=== PATIENT | male | born 1970 | race Caucasian/White ===

== ENCOUNTER 2020-02-06 08:35 | Outpatient (NON) | payer BC, SELFPAY ==
[2020-02-06 18:53] LABS: SARS-CoV-2 RNA PCR Negative
== END 2020-02-06 08:36 ==
LOC: ANHCOVIDDT 08:39
DX: Z01.818 Encounter for other preprocedural examination (principal); Z20.828 Contact with and (suspected) exposure to other viral communicable diseases
CPT/HCPCS: 87635; C9803; U0003

== ENCOUNTER → 2021-03-14 14:14 | Outpatient (CLI) | payer BC, SELFPAY ==
--- NOTE | ~2021-03-14 | MR_ITS ---
EXAMINATION: MR lumbar spine wo con DATE: 03/14/2021 14:50 INDICATION: Lumbar radiculopathy. Low back pain. TECHNIQUE: Magnetic resonance imaging (MRI) of the lumbar spine was performed without intravenous con trast. Sequences included sagittal T2-weighted FSE, sagittal T2-weighted FS FSE, sagittal T1-weighted FSE, and axial T2-weighted FSE. COMPARISON: Lumbar spine radiographs 07/06/2018 FINDINGS: There is 3 mm anterolisthesis of L5 on S1. There is mild chronic anterior wedging of T12 an d L1 vertebral bodies. There is a hemangioma in S2 segment. There is mildly decreased disc height at L5-S1. The distal spinal cord signal intensity is normal. The conus medullaris is at L1-L2. The follo wing disc levels are specifically discussed: L1-L2: There is a central protrusion. There is mild bilateral facet joint osteoarthritis. There is no neural foraminal stenosis. There is no central canal stenosis. L2-L3: The disc is mildly bulging. There is mild bilateral facet joint osteoarthritis. There is mild left neural foraminal stenosis. There is mild central canal stenosis. L3-L4: The disc is bulging. There is mild bilateral facet joint osteoarthritis. There is mild bilater al neural foraminal stenosis. There is mild central canal stenosis. L4-L5: The disc is mildly bulging and has an annular fissure. There is mild bilateral facet joint ost eoarthritis. There is mild right neural foraminal stenosis. There is no central canal stenosis. L5-S1: The disc is bulging and has an annular fissure. There is mild bilateral facet joint osteoarthr itis. There is mild bilateral neural foraminal stenosis. There is mild central canal stenosis. IMPRESSION: 1. Mild lumbar spondylosis. Reviewed, dictated and finalized at location B. GUIDE IMPRESSION: 1. Mild lumbar spondylosis.
== END ==
PROVIDERS: PCP Family Medicine; Visit Provider Nurse Practitioner Family
DX: M47.26 Other spondylosis with radiculopathy, lumbar region (principal)
CPT/HCPCS: 72148

== ENCOUNTER → 2021-05-14 16:16 | Outpatient (CLI) | payer BC, SELFPAY ==
--- NOTE | ~2021-05-14 | XR_ITS ---
XR hip LT min 2V DATE: 05/14/2021 16:29 INDICATION: Left hip pain TECHNIQUE: AP, lateral views COMPARISON: None FINDINGS: There is irregular flattening deformity and some prominent sclerosis and mild lucency of th e left femoral head consistent with avascular necrosis. There is severe left hip joint space narrowin g as well as prominent left hip joint spurring. No fracture or dislocation. The pubic symphysis and left sacroiliac joint are intact. 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 IMPRESSION: Avascular necrosis left femoral head and severe left hip osteoarthr itis
== END ==
PROVIDERS: PCP Family Medicine; Visit Provider Nurse Practitioner Family
DX: M16.12 Unilateral primary osteoarthritis, left hip (principal); M87.852 Other osteonecrosis, left femur
CPT/HCPCS: 73502

== ENCOUNTER 2024-09-22 14:55 | Outpatient (CLI) | payer BC, SELFPAY ==
--- OUTSIDE RECORDS SUMMARY | 2024-09-22 14:58 | XMS_ITS | Clinical Summary ---
Author Organization [facility] Address [address] [place] [address] Phone Care Team Providers Care Jewelry Store Manager Name Role Phone Jj Luu MD Primary Care Provider Allergies No known active allergies Medications lisinopril-hydro CHLOROthiazide (PRINZIDE, ZESTORETIC) 10-12.5 MG Tablet Take 1 Tablet by mouth daily. Active atorvastatin (LIPITOR) 10 MG Tablet Take 10 mg by mouth daily. 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 Gender Identity Not on file Sexual Orientation Not on file Last Filed Vital Signs Vital Sign Reading Time Taken Comments Blood Pressure 123/91 11/16/2020 8:19 AM CDT Pulse 65 11/16/2020 8:19 AM CDT Temperature 36 C (96.8 F) 11/16/2020 8:19 AM CDT Respiratory Rate 16 11/16/2020 8:19 AM CDT Oxygen Saturation 95% 11/16/2020 8:19 AM CDT Inhaled Oxygen Concentration - - Weight 99.8 kg (220 lb) 10/19/2020 1:00 PM CDT Height 177.8 cm (5' 10) 10/19/2020 1:00 PM CDT Body Mass Index 31.57 10/19/2020 1:00 PM CDT Plan of Treatment Health Maintenance Due Date Last Done Comments Hepatitis C Virus (HCV) Screening 1968 Hepatitis B Immunization (1 of 3 - 19+ 3-dose series) 02/18/1987 Cologuard 02/18/2013 Immunochemical Fecal Occult Blood 02/18/2013 Pneumococcal Immunization (5 0+ years) (1 of 1 - PCV) 02/18/2018 Zoster Immunization (1 of 2) 02/18/2018 Colonoscopy 11/16/2021 11/16/2020, 02/10/2019, 10/28/2018 Colorectal Cancer Screening 11/16/2021 SARS-COV-2 Immunization (2 - season) 2023 05/08/2020 Influenza Immunization (#1) 2024 Respiratory Syncytial Virus (RSV) Immunization (Adult) (1 - 1-dose 75+ series) 02/18/2043 DTaP/Tdap/Td Immunization Discontinued 02/06/2015 TdaP Immunization Completed 02/06/2015 Human Papillomavirus (HPV) Immunization Aged Out No longer eligible based on patient's age to complete this topic Meningococcal Immunization (ACWY) Aged Out No longer eligible based on patient's age to complete this topic Rotavirus Immunization Aged Out No lo nger eligible based on patient's age to complete this topic Procedures Procedure Name Priority Date/Time Associated Diagnosis Comments COLONOSCOPY Routine 02/10/2019 from Last 3 Months or Most Recently Relevant to Health Maintenance Results * COLONOSCOPY (02/10/2019) us Eduin Beck DO PROCEDURE/MINOR SURGICAL ORDERA BLES Final Result from Last 3 Months or Most Recently Relevant to Health Maintenance [place] [address] [facility] Care Teams Jewelry Store Manager Relationship Specialty Start Date End Date Jj Luu MD PCP - General Family Medicine 08/10/18
--- OUTSIDE RECORDS SUMMARY | 2024-09-22 14:58 | XMS_ITS | Clinical Summary ---
Author Organization [facility] Address [address] [place] [id number] Care Team Providers Care Long Line Teamster Name Role Phone Jj Luu MD Primary Care Provider Gerald Gomez MD Unavailable Allergies No known active allergies Medications lisinopril-hydroC HLOROthiazide (ZESTORETIC) 10-12.5 mg per tabletIndications :hypertension Take 1 tablet by mouth every morning 022 Active cholecalciferol, vitamin D3, (VITAMIN D3 ORAL)Indications: supplement Take 1 tablet by mouth every morning Active acetaminophen (TYLENOL) 500 mg tablet Take 1 tablet (500 mg total) by mouth every 8 (eight) hours as needed for pain 90 tablet 025 Active aspirin 81 mg chewable tablet Take 1 tablet (81 mg total) by mouth 2 (two) times a day 60 tablet 025 Active atorvastatin (LIPITOR) 80 mg tablet Take 1 tablet (80 mg total) by mouth nightly at bedtime 025 Active atorvastatin (LIPITOR) 40 mg tabletIndications :hyperlipidemia Take 1 tablet (40 mg total) by mouth every morning 2024 Discontinued testosterone cypionate (DEPO-TESTOTERONE ) 200 mg/mL injectionIndicati ons:supplement Inject 1 mL (200 mg total) into the muscle as instructed every 28 (twenty-eight ) days 025 2024 Discontinued(P atient Reported) oxyCODONE (ROXICODONE) 5 mg immediate release tabletIndications :Pain Take 1 tablet (5 mg total) by mouth every 4 (four) hours as needed for pain (Breakthrough Pain) 30 tablet 025 2024 Discontinued(P atient Reported) pregabalin (LYRICA) 75 mg capsuleIndication s:Postoperative Acute Pain Take 1 capsule (75 mg total) by mouth 2 (two) times a day for 14 days 28 capsule 025 2024 Discontinued(P atient Reported) traMADoL (ULTRAM) 50 mg tablet Take 1 tablet (50 mg total) by mouth every 8 (eight) hours as needed for pain 42 tablet 025 2024 Discontinued(P atient Reported) ondansetron ODT (ZOFRAN-ODT) 4 mg disintegrating tablet Take 1 tablet (4 mg total) by mouth every 8 (eight) hours as needed for nausea or vomiting 20 tablet 025 2024 Discontinued(P atient Reported) pantoprazole DR (PROTONIX) 40 mg EC tablet Take 1 tablet (40 mg total) by mouth daily 30 tablet 025 2024 Discontinued(P atient Reported) Active Problems Problem Noted Date Diagnosed Date Primary osteoarthritis of right hip 03/25/2024 Hypertension 07/24/2021 Hyperlipemia 07/24/2021 Class 1 obesity in adult 07/24/2021 At risk for obstructive sleep apnea 07/24/2021 Primary osteoarthritis of left hip 07/10/2021 Overview (07/10/2021): Added automatically from request for surgery [id number] Encounters Date Type Department Care Team Description 09/16/2024 2:45 PM CDT Office Visit [facility] Orthopaedic Surgery [address] [place] [address] Medical Office Building [address] [place] [address] Gerald Gomez MD Orthopedic aftercare (Primary Dx) 09/16/2024 1:52 PM CDT - 09/16/2024 11:59 PM CDT Hospital Encounter [id number] [address] [place] [address] [address] [place] [address] Orthopedic aftercare Discharge Disposition: Discharge to home or self care 06/24/2024 2:45 PM CDT Office Visit [facility] Orthopa[facility] Surgery [address] [facility] Medical Office [address] [place] [address] Gerald Gomez MD Orthopedic aftercare (Primary Dx) 06/24/2024 1:49 PM CDT - 06/24/2024 11:59 PM CDT Hospital Encounter [facility] [address] [facility] [address] [place] [address] Orthopedic aftercare Discharge Disposition: Discharge to home or self care from Last 3 Months Immunizations Immunization Administration Dates Next Due Tdap 02/06/2015 Surgical History Surgery Date Site/Laterality Comments APPENDECTOMY had appendix removed as a baby OTHER SURGICAL HISTORY ORIF R arm WISDOM TOOTH EXTRACTION HIP SURGERY 03/02/2021 - 03/01/2022 Left Medical History Medical History Date Comments Hypertension 5 years ago Kidney stone had once in 1997 Family History Medical History Relation Name Comments Heart attack Father Justice Coleman Hypertension Father Justice Coleman Anesthesia problems Neg Hx Relation Name Status Comments Father Justice Coleman Social History Tobacco Use Types Packs/Day Years Used Date Smoking Tobacco: Never Smokeless Tobacco: Never AUDIT-C Answer Date Recorded Q1: How often do you have a drink containing alcohol? 4 or more times a week 05/24/2024 Q2: How many drinks containi ng alcohol do you have on a typical day when you are drinking? 3 or 4 Q3: How often do you have si x or more drinks on one occasion? Less than monthly 05/24/2024 Personal Safety Answer Date Recorded Have you ever been in or are you currently in a harmful physical or emotional relationship or is someone making you feel afraid or unsafe? 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 Gender Identity Not on file Sexual Orientation Not on file Obstetrics History Last Filed Vital Signs Vital Sign Reading Time Taken Comments Blood Pressure 140/78 05/24/2024 12:20 PM CDT Pulse 100 05/24/2024 12:20 PM CDT Temperature 36 C (96.8 F) 05/24/2024 9:20 AM CDT Respiratory Rate 17 05/24/2024 11:30 AM CDT Oxygen Saturation 94% 05/24/2024 12:20 PM CDT Inhaled Oxygen Concentration - - Weight 99.8 kg (220 lb) 05/24/2024 7:09 AM CDT Height 177.8 cm (5' 10) 05/10/2024 2:40 PM CDT Body Mass Index 31.57 05/10/2024 2:40 PM CDT Plan of Treatment Health Maintenance Due Date Last Done Comments Colon Cancer Screening-Colonoscopy 1970 Depression Screening 1970 Hepatitis C Screening 1970 Prostate Cancer Screening-PSA 1968 Hepatitis B Screening 02/18/1986 Regular Well Visit/Exam 18-64 02/18/1986 Zoster Vaccine (1 of 2) 02/18/2018 Covid-19 Vaccine (2 - 2023-2 5 season) 2023 05/08/2020 Influenza Vaccine (#1) 2024 DTaP/Tdap/Td Vaccine (2 - Td or Tdap) 02/06/2025 02/06/2015 Pneumococcal vaccine <65 Aged Out No longer eligible based on patient's age to complete this topic Medical Devices Implanted Type Area Hand Coke Drawer Device Identifier Shelf Expiration Date Model / Serial / Lot [employer] 709-04-56f Shell Acetabular Trident Ii Tritanium F Od56mm Hip 13 Hole Sterile - Sna - [id number] Implanted:Qty: 1 on 08/01/2021 by Gerald Gomez MD at [facility] Other - see comments Left: Hip [employer] [id number] 05/19/2026 709-04-5 6F / NA / [id number] Description:Implant pause pe rformed prior to implant being opened to sterile field. Tjrident X3 0 Degree Polyethyleve Inser Implanted:Qty: 1 on 08/01/2021 by Gerald Gomez MD at [facility] Other - see comments Left: Hip [employer] [id number] 12/11/2025 723-00-4 0F / NA / [id number] Description:Implant pause pe rformed prior to implant being opened to sterile field. [employer] V40 Lfit 40mm Primary Anatomic Hip +8mm Offset Taper Head Femoral 6260-9-340 - Sna - [id number] Implanted:Qty: 1 on 08/01/2021 by Gerald Gomez MD at [facility] Other - see comments Left: Hip [employer] [id number] 02/05/2025 6260-9-3 40 / NA / [id number] Description:Implant pause pe rformed prior to implant being opened to sterile field. [employer] 2507-9935 Stem Insignia Hip Size 4 High Offset - Sna - [id number] Implanted:Qty: 1 on 08/01/2021 by Gerald Gomez MD at [facility] Other - see comments Left: Hip [employer] [id number] 04/08/2026 7000-660 4 / NA / [id number] Description:Implant pause pe rformed prior to implant being opened to sterile field. [employer] 9794-1306 Screw Bone Trident Ii L30mm Od6.5mm Low Profile Hexagonal Sterile - Sna - [id number] Implanted:Qty: 1 on 08/01/2021 by Gerald Gomez MD at [facility] Screw Left: Hip [employer] [id number] 06/24/2026 7030-653 0 / NA / [id number] Description:Implant pause pe rformed prior to implant being opened to sterile field. [employer] 4966-0894 Screw Bone Trident Ii L25mm Od6.5mm Low Profile Hexagonal Sterile - Sna - [id number] Implanted:Qty: 1 on 08/01/2021 by Gerald Gomez MD at [facility] Screw Left: Hip [employer] [id number] 05/24/2026 7030-652 5 / NA / [id number] Description:Implant pause pe rformed prior to implant being opened to sterile field. [employer] Screw Bone Trident Ii L30mm Od6.5mm Low Profile Hexagonal Sterile 6089-1894 - [id number] Implanted:Qty: 1 on 05/24/2024 at [facility] Right: Hip [employer] 08/23/2028 7030-653 0 / / [facility] [employer] Stem Femoral Hip Collared [employer]ignia 38.7w826ns High Offset Size 5 7641-4756 - [id number] Implanted:Qty: 1 on 05/24/2024 at [facility] Right: Hip [employer] 03/30/2029 7000-660 5 / / [id number] [employer] V40 Hip -2.5mm Offset [place] Taper Sleeve Adapter Titanium 6519-T-025 - [id number] Implanted:Qty: 1 on 05/24/2024 at [facility] Right: Hip [employer] 04/11/2029 6519-T-0 25 / / [id number] [employer] 44mm Tapered Hip [place] Head Femoral Biolox Nonsterile 6519-1-044 - [id number] Implanted:Qty: 1 on 05/24/2024 at [facility] Right: Hip [employer] 03/10/2029 6519-1-0 44 / / [id number] [employer] Liner Acetabular Hip Trident X3 44mm Polyethylene 0 Degree Size F 723-00-44f - [id number] Implanted:Qty: 1 on 05/24/2024 at [facility] Right: Hip [employer] 03/24/2029 723-00-4 4F / / [id number] [employer] Shell Acetabular Trident Ii Tritanium F Od56mm Hip 5 Screw Hole Cluster Sterile 702-04-56f - [id number] Implanted:Qty: 1 on 05/24/2024 at [facility] Right: Hip [employer] 01/31/2029 702-04-5 6F / / [id number] A Explanted Type Area Hand Coke Drawer Device Identifier Shelf Expiration Date Model / Serial / Lot [employer] Component Navigation Orthopedic Knee Instrument 132 Degree [facility] [id number] - [id number] Explanted:Qty: 1 on 05/24/2024 at [facility] Right: Hip [employer] 10/22/2028 [id number] / / [id number] Procedures Procedure Name Priority Date/Time Associated Diagnosis Comments XR HIP RIGHT W PELVIS 2 OR 3 VIEWS Schedule Routine, Read Routine (OP Routine) 09/16/2024 2:04 PM CDT Orthopedic aftercare XR HIP RIGHT W PELVIS 2 OR 3 VIEWS Schedule Routine, Read Routine (OP Routine) 06/24/2024 2:09 PM CDT Orthopedic aftercare from Last 3 Months Results * XR Hip Right 2 or 3 Views W Pelvis (09/16/2024 2:04 PM CDT) Anatomical Region Laterality Modality Lower Extremities, Hip, Pelvis Right C omputed Radiography 09/16/2024 4:23 PM CDT Impressions 09/16/2024 10:49 PM CDT Unchanged right total hip arthroplasty in near-anatomic alignment. Dictated by: Tee Anderson MD The radiology attending physician has personally reviewed this study, and had reviewed and/or edited this written report and agrees with it. Electronically signed by: Anjel Montoya MD [facility] 09/16/2024 10:49 PM CDT EXAMINATION: XR HIP RIGHT 2 OR 3 VIEWS W PELVIS HISTORY: Hip arthroplasties. COMPARISON: Comparison made to radiographs 06/24/2024 FINDINGS: 2 total radiographs of the lower pelvis and the right hip are submitted for interpretation. Unchanged right total hip arthroplasty in near-anatomic alignment. Hardware is intact without periprosthetic osteolysis or fracture. No acute fracture of the lower pelvis. There is a left hip arthroplasty. Procedure Note Usha Montoya MD - 09/16/2024 EXAMINATION: XR HIP RIGHT 2 OR 3 VIEWS W PELVIS HISTORY: Hip arthroplasties. COMPARISON: Comparison made to radiographs 06/24/2024 FINDINGS: 2 total radiographs of the lower pelvis and the right hip are submitted for interpretation. Unchanged right total hip arthroplasty in near-anatomic alignment. Hardware is intact without periprosthetic osteolysis or fracture. No acute fracture of the lower pelvis. There is a left hip arthroplasty. IMPRESSION: Unchanged right total hip arthroplasty in near-anatomic alignment. Dictated by: Tee Anderson MD The radiology attending physician has personally reviewed this study, and had reviewed and/or edited this written report and agrees with it. Electronically signed by: Anjel Montoya MD Gerald Gomez MD IMG XR PROCEDURES Final Result * XR Hip Right 2 or 3 Views W Pelvis (06/24/2024 2:09 PM CDT) Anatomical Region Laterality Modality Lower Extremities, Hip, Pelvis Right C omputed Radiography 06/24/2024 3:04 PM CDT Impressions 06/24/2024 4:06 PM CDT Unchanged right total hip arthroplasty in near anatomic alignment. Dictated by: Jimenez Dupont MD The radiology attending physician has personally reviewed this study, and had reviewed and/or edited this written report and agrees with it. Electronically signed by: Tobi Moore D.O. Narrative 06/24/2024 4:06 PM CDT EXAMINATION: XR HIP RIGHT 2 OR 3 VIEWS W PELVIS HISTORY: Right hip arthroplasty FINDINGS: 2 views of the right hip are compared to 05/24/2024. There is an unchanged right total hip arthroplasty in near anatomic alignment. No periprosthetic fracture or lucency. Interval resolution of previously seen postsurgical soft tissue gas. A left total hip arthroplasty is in expected position. Procedure Note Tobi Moore, - 06/24/2024 EXAMINATION: XR HIP RIGHT 2 OR 3 VIEWS W PELVIS HISTORY: Right hip arthroplasty FINDINGS: 2 views of the right hip are compared to 05/24/2024. There is an unchanged right total hip arthroplasty in near anatomic alignment. No periprosthetic fracture or lucency. Interval resolution of previously seen postsurgical soft tissue gas. A left total hip arthroplasty is in expected position. IMPRESSION: Unchanged right total hip arthroplasty in near anatomic alignment. Dictated by: Jimenez Dupont MD The radiology attending physician has personally reviewed this study, and had reviewed and/or edited this written report and agrees with it. Electronically signed by: Tobi Moore D.O. Gerald Gomez MD IMG XR PROCEDURES Final Result from Last [address] [place] [address] [place] For more information, please contact: [phone] * Full Code (Latest Code Status on File) Date Activated Date Inactivated Comments 08/01/2021 11:12 AM 08/02/2021 3:04 PM Care Teams Long Line Teamster Relationship Specialty Start Date End Date Jj Luu MD PCP - General Family Practice 07/24/21 Gerald Gomez MD [address] [facility] [address] [place] [address] Consulting Physician Orthopedic Surgery 05/24/24
--- OUTSIDE RECORDS SUMMARY | 2024-09-22 14:58 | XMS_ITS | Clinical Summary ---
Author Organization [facility] Address [address] [place] [phone] Care Team Providers Care Whipper Beater Name Role Phone Unavailable Primary Care Provider Unavailabl e Encounters Date Type Department Care Team Description 08/23/2024 External Device Data ST[facility] ABSTRACTION Provider, Abstract 07/21/2024 External Device Data [facility] ABSTRACTION Provider, Abstract 07/20/2024 External Device Data [facility] ABSTRACTION Provider, Abstract from Last 3 Months Social History Tobacco Use Types Packs/Day Years Used Date Smoking Tobacco: Never Assessed Sex and Gender Information Value Date Recorded Sex Assigned at Not on file 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
--- OUTSIDE RECORDS SUMMARY | 2024-09-22 14:58 | XMS_ITS | Referral Summary ---
Author Organization [facility] Address [address] [place] [address] Care Team Providers Care Arts Education Teacher Name Role Phone Jj Luu MD Primary Care Provider Gerald Gomez MD Unavailable Encounters Date Type Department Care Team Description 09/16/2024 1:52 PM CDT - 09/16/2024 11:59 PM CDT Hospital Encounter [facility] [address] [place] [address] [address] [place] [address] Orthopedic aftercare Discharge Disposition: Discharge to home or self care 09/16/2024 2:45 PM CDT Office Visit [facility] Orthopaedic Surgery [address] [place] [address] [address] [place] [phone] Gerald Gomez MD Orthopedic aftercare (Primary Dx) 06/24/2024 1:49 PM CDT - 06/24/2024 11:59 PM CDT Hospital Encounter [facility] [address] [place] [address] [address] [place] [address] Orthopedic aftercare Discharge Disposition: Discharge to home or self care 06/24/2024 2:45 PM CDT Office Visit [facility] Orthopaedic Surgery [address] [place] [address] 4 [address] [place] [address] Gerald Gomez MD Orthopedic aftercare (Primary Dx) from Last 3 Months Allergies No known active allergies Medications lisinopril-hydroC HLOROthiazide (ZESTORETIC) 10-12.5 mg per tabletIndications :hypertension Take 1 tablet by mouth every morning Active cholecalciferol, vitamin D3, (VITAMIN D3 ORAL)Indications: supplement Take 1 tablet by mouth every morning Active acetaminophen (TYLENOL) 500 mg tablet Take 1 tablet (500 mg total) by mouth every 8 (eight) hours as needed for pain 90 tablet Active aspirin 81 mg chewable tablet Take 1 tablet (81 mg total) by mouth 2 (two) times a day 60 tablet Active atorvastatin (LIPITOR) 80 mg tablet Take 1 tablet (80 mg total) by mouth nightly at bedtime Active atorvastatin (LIPITOR) 40 mg tabletIndications :hyperlipidemia Take 1 tablet (40 mg total) by mouth every morning 2024 Discontinued testosterone cypionate (DEPO-TESTOTERONE ) 200 mg/mL injectionIndicati ons:supplement Inject 1 mL (200 mg total) into the muscle as instructed every 28 (twenty-eight ) days 2024 Discontinued(P atient Reported) oxyCODONE (ROXICODONE) 5 mg immediate release tabletIndications :Pain Take 1 tablet (5 mg total) by mouth every 4 (four) hours as needed for pain (Breakthrough Pain) 30 tablet 2024 Discontinued(P atient Reported) pregabalin (LYRICA) 75 mg capsuleIndication s:Postoperative Acute Pain Take 1 capsule (75 mg total) by mouth 2 (two) times a day for 14 days 28 capsule 2024 Discontinued(P atient Reported) traMADoL (ULTRAM) 50 mg tablet Take 1 tablet (50 mg total) by mouth every 8 (eight) hours as needed for pain 42 tablet 2024 Discontinued(P atient Reported) ondansetron ODT (ZOFRAN-ODT) 4 mg disintegrating tablet Take 1 tablet (4 mg total) by mouth every 8 (eight) hours as needed for nausea or vomiting 20 tablet 2024 Discontinued(P atient Reported) pantoprazole DR (PROTONIX) 40 mg EC tablet Take 1 tablet (40 mg total) by mouth daily 30 tablet 18/ 2025 Discontinued(P atient Reported) Active Problems Problem Noted Date Diagnosed Date Primary osteoarthritis of right hip 03/25/2024 Hypertension 07/24/2021 Hyperlipemia 07/24/2021 Class 1 obesity in adult 07/24/2021 At risk for obstructive sleep apnea 07/24/2021 Primary osteoarthritis of left hip 07/10/2021 Overview (07/10/2021): Added automatically from request for surgery [id number] Immunizations Immunization Administration Dates Next Due Tdap 02/06/2015 Social History Tobacco Use Types Packs/Day Years [...] on file 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 Gender Identity Not on file Sexual Orientation [...] 05/10/2024 2:40 PM CDT Plan of Treatment Not on file Medical Devices Implanted Type Area Wood Web Weaving Machine Operator Device Identifier Shelf Expiration Date Model / Serial / Lot [employer] 709-04-56f Shell Acetabular Trident Ii Tritanium F Od56mm Hip 13 Hole Sterile - Sna - [id number] Implanted:Qty: 1 on 08/01/2021 by Gerald Gomez MD at [facility] Other - see comments Left: Hip [facility] [id number] 05/19/2026 709-04-5 6F / NA / [id number] A Description:Implant pause pe rformed prior to implant being opened to sterile field. Tjrident X3 0 Degree Polyethyleve Inser Implanted:Qty: 1 on 08/01/2021 by Gerald Gomez MD at [facility] Other - see comments Left: Hip [employer] [id number] 12/11/2025 723-00-4 0F / NA / [id number] Description:Implant pause pe rformed prior to implant being opened to sterile field. [employer] V40 Lfit 40mm Primary Anatomic Hip +8mm Offset Taper Head Femoral 6260-9-340 - Sna - [id number] Implanted:Qty: 1 on 08/01/2021 by Gerald Gomez MD at [facility] Other - see comments Left: Hip [employer] [id number] 02/05/2025 6260-9-3 40 / NA / [id number] Description:Implant pause pe rformed prior to implant being opened to sterile field. [employer] 3419-8688 Stem Insignia Hip Size 4 High Offset - Sna - [id number] Implanted:Qty: 1 on 08/01/2021 by Gerald Gomez MD at [facility] Other - see comments Left: Hip [facility] [id number] 04/08/2026 7000-660 4 / NA / [id number] Description:Implant pause pe rformed prior to implant being opened to sterile field. [facility] 3108-9900 Screw Bone Trident Ii L30mm Od6.5mm Low Profile Hexagonal Sterile - Sna - [id number] Implanted:Qty: 1 on 08/01/2021 by Gerald Gomez MD at [facility] Screw Left: Hip [facility] [id number] 06/24/2026 7030-653 0 / NA / [id number] Description:Implant pause pe rformed prior to implant being opened to sterile field. [facility] 7919-6073 Screw Bone Trident Ii L25mm Od6.5mm Low Profile Hexagonal Sterile - Sna - [id number] Implanted:Qty: 1 on 08/01/2021 by Gerald Gomez MD at [facility] Screw Left: Hip [employer] [id number] 05/24/2026 7030-652 5 / NA / [id number] Description:Implant pause pe rformed prior to implant being opened to sterile field. [facility] [facility] Screw Bone Trident Ii L30mm Od6.5mm Low Profile Hexagonal Sterile 2028-1441 - [id number] Implanted:Qty: 1 on 05/24/2024 at [facility] Right: Hip [facility] 08/23/2028 7030-653 0 / / [facility] [employer] Stem Femoral Hip Collared Insignia 38.9t446bc High Offset Size 5 9666-6394 - [id number] Implanted:Qty: 1 on 05/24/2024 at [facility] Right: Hip [facility] 03/30/2029 7000-660 5 / / [id number] [facility] [facility] V40 Hip -2.5mm Offset Talala Taper Sleeve Adapter Titanium 6519-T-025 - [id number] Implanted:Qty: 1 on 05/24/2024 at [facility] Right: Hip [facility] 04/11/2029 6519-T-0 25 / / [id number] [facility] 44mm Tapered Hip [place] Head Femoral Biolox Nonsterile 6519-1-044 - [id number] Implanted:Qty: 1 on 05/24/2024 at [facility] Right: Hip [employer] 03/10/2029 6519-1-0 44 / / [id number] [employer] Liner Acetabular Hip Trident X3 44mm Polyethylene 0 Degree Size F 723-00-44f - [id number] Implanted:Qty: 1 on 05/24/2024 at [facility] Right: Hip [employer] [facility] 03/24/2029 723-00-4 4F / / [id number] [facility] Shell Acetabular Trident Ii Tritanium F Od56mm Hip 5 Screw Hole Cluster Sterile 702-04-56f - [id number] Implanted:Qty: 1 on 05/24/2024 at [facility] Right: Hip [facility] 01/31/2029 702-04-5 6F / / [id number] A Explanted Type Area Wood Web Weaving Machine Operator Device Identifier Shelf Expiration Date Model / Serial / Lot [employer] Component Navigation Orthopedic Knee Instrument 132 Degree [facility] [id number] - [id number] Explanted:Qty: 1 on 05/24/2024 at [facility] Right: Hip [facility] 10/22/2028 [id number] / / [id number] Procedures Procedure Name Priority Date/Time Associated [...] it. Electronically signed by: Anjel Montoya MD Narrative 09/16/2024 10:49 PM CDT EXAMINATION: XR HIP [...] and agrees with it. Electronically signed by: Malik Yarbrough 06/24/2024 4:06 PM CDT EXAMINATION: XR HIP [...] in expected position. Procedure Note Tobi Moore, DO - 06/24/2024 EXAMINATION: XR HIP RIGHT 2 [...] Final Result from Last 3 Months [place] [employer] [place] [employer] [place] [employer] [place] [employer] [place] Direct[place] For more information, please contact: [phone] * Full Code (Latest Code Status on File) Date Activated Date Inactivated Comments 08/01/2021 11:12 AM 08/02/2021 3:04 PM Care Teams Arts Education Teacher Relationship Specialty Start Date End Date Jj Luu MD PCP - General Family Practice 07/24/21 Gerald Gomez MD [address] [facility] [address]6B[address] [address] Consulting Physician Orthopedic Surgery 05/24/24
--- NOTE | 2024-09-22 15:13 | ECG_ITS ---
Test Date: 2024-09-22 15:20:23 Measurements Intervals [place] Rate: 61 P: 38 NH: 209 QRS: 27 QRSD: 101 T: -22 QT: 407 QTc: 413 Interpretive Statements SINUS RHYTHM NONSPECIFIC T-WAVE ABNORMALITY No previous ECG available for comparison Electronically Signed On 09-23-2024 16:02:44 CDT by Hero Carlin M.D.
== END 2024-09-22 14:56 | disposition home or self-care (01) ==
PROVIDERS: PCP Family Medicine; Visit Provider Anesthesiology
DX: Z01.818 Encounter for other preprocedural examination (principal); R94.31 Abnormal electrocardiogram [ECG] [EKG]; K40.90 Unilateral inguinal hernia, without obstruction or gangrene, not specified as recurrent; I10 Essential (primary) hypertension; E78.5 Hyperlipidemia, unspecified
CPT/HCPCS: 36415; 86850; 86900; 86901; 93005

== ENCOUNTER 2024-09-27 02:07 | Day surgery (SDC) | payer BC, SELFPAY ==
[2024-09-21 14:55] VITALS: BMI 31.6
--- NOTE | 2024-09-21 15:05 | PC.NURSE ---
Report to the Outpatient Waiting Room, entrance under the green pavilion located off [facility], at time _1100_ on date _[phone]_. Planned Procedure Time: _1pm_.? Time changes happen often and if your time is changed the preop area will call you the afternoon before. - You and your visitor will be asked to self-screen and do not enter if you have any COVID symptoms. Please call surgeon if you need to reschedule. - A mask is optional within the hospital at this time. Patients may have clear liquids (water, carbonated beverages, clear teas, apple juice) until 3 hours prior to surgery with a maximum of 20 ounces. - No food from midnight until time of surgery and no smoking, or chewing tobacco (or any form of nicotine). No chewing gum, candy or mints. Take only the following medications with a SIP of water on the morning of surgery: ____None DO NOT STOP ANY OF YOUR OTHER PRESCRIPTION MEDICATIONS PRIOR TO SURGERY EXCEPT THE FOLLOWING Hold all vitamins and supplements for 3 days per anesthesiologist. Medications to discontinue per physician Date to take last kwaz___[phone]____ Please no make-up, nail tajik, hairspray, perfume, deodorant, or body powder the day of surgery.? No jewelry (including any body piercings) or valuables the day of surgery, leave them at home.? Please take a shower or bath the night before, or the morning of, surgery with an antibacterial soap.? Wear comfortable, loose fitting clothing. - Jewelry must be removed prior to entering the operating room.? Rings and piercings that are not removed may be cut off. - The hospital will not accept responsibility for valuables.? - Please leave all valuables, including medications, at home the day of surgery. If you are going home after surgery, a licensed route delivery driver must drive you home.? - NO public transportation without another adult if you receive anesthesia. - We recommend that an adult stay with you for 24 hours following discharge. - We also recommend that you do not drive, make important decision, drink alcoholic beverages, or take any drugs that were not prescribed by your health care provider for at least 24 hours after your discharge time. Follow any additional instructions given to you from your surgeon. Telephone instructions given to __Mike___and asked if any additional questions and then verbalized understanding. Patient advised to call surgeon office or pre surgery nurse liaison [phone] if any additional questions.
[2024-09-27] VITALS (10 sets, daily range): BP systolic 118–130; BP diastolic 70–82; PULSE 63–77; RESP 14–18; TEMP 36.7–37.3; O2SAT 93–98
--- OUTSIDE RECORDS SUMMARY | 2024-09-27 02:09 | XMS_ITS | Clinical Summary ---
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
--- OUTSIDE RECORDS SUMMARY | 2024-09-27 02:09 | XMS_ITS | Referral Summary ---
Author Organization [facility] Address [address] [place] [address] Care Team Providers Care Press Operator Meat Name Role Phone Jj Luu MD Primary Care Provider Gerald Gomez MD Unavailable Encounters Date Type Department Care Team Description 09/16/2024 1:52 PM CDT - 09/16/2024 11:59 PM CDT Hospital Encounter [facility] Radiology [address] [place] [address] [address] [place] [phone] Orthopedic aftercare Discharge Disposition: Discharge to home or self care 09/16/2024 2:45 PM CDT Office Visit [facility] Orthopaedic Surgery [address] [place] [address] Medical Office Building [address] [place] [address] Gerald Gomez MD Orthopedic aftercare [...] mg total) by mouth daily 30 tablet 2024 Discontinued(P atient Reported) Active Problems Problem Noted Date Diagnosed Date Primary osteoarthritis of right hip 03/25/2024 Hypertension 07/24/2021 Hyperlipemia 07/24/2021 Class 1 obesity in adult 07/24/2021 At risk for obstructive sleep apnea 07/24/2021 Primary osteoarthritis of left hip 07/10/2021 Overview (07/10/2021): Added automatically from request for surgery [id number] Immunizations Immunization Administration Dates Next Due Tdap [...] on file 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 Tjrident X3 0 Degree Polyethyleve Inser Implanted:Qty: 1 on 08/01/2021 by Gerald Gomez MD at [facility] Other - see comments Left: Hip [facility] [id number] 12/11/2025 723-00-4 0F / NA / [id number] Description:Implant pause pe rformed prior to implant being opened to sterile field. [facility] V40 Lfit 40mm Primary Anatomic Hip +8mm Offset Taper Head Femoral 6260-9-340 - Sna - [id number] Implanted:Qty: 1 on 08/01/2021 by Gerald Gomez MD at [facility] Other - see comments Left: Hip [employer] [id number] 02/05/2025 6260-9-3 40 / NA / [id number] Description:Implant pause pe rformed prior to implant being opened to sterile field. [facility] 3000-0271 Stem Insignia Hip Size 4 High Offset - Sna - [id number] Implanted:Qty: 1 on 08/01/2021 by Gerald Gomez MD at [facility] Other - see comments Left: Hip [facility] [id number] 04/08/2026 7000-660 4 / NA / [id number] Description:Implant pause pe rformed prior to implant being opened to sterile field. [employer] 9267-2254 Screw Bone Trident Ii L30mm Od6.5mm Low Profile Hexagonal Sterile - Sna - [id number] Implanted:Qty: 1 on 08/01/2021 by Gerald Gomez MD at [facility] Screw Left: Hip [employer] [facility] [id number] 06/24/2026 7030-653 0 / NA / WSPD Description:Implant pause pe rformed prior to implant being opened to sterile field. [facility] 5505-1621 Screw Bone Trident Ii L25mm Od6.5mm Low Profile Hexagonal Sterile - Sna - [id number] Implanted:Qty: 1 on 08/01/2021 by Gerald Gomez MD at [facility] Screw Left: Hip [facility] [facility] [id number] 05/24/2026 7030-652 5 / NA / [id number] Description:Implant pause pe rformed prior to implant being opened to sterile field. [facility] Screw Bone Trident Ii L30mm Od6.5mm Low Profile Hexagonal Sterile 0297-2628 - [id number] Implanted:Qty: 1 on 05/24/2024 at [facility] Right: Hip [facility] [facility] 08/23/2028 7030-653 0 / / JHY [employer] Stem Femoral Hip Collared Insignia 38.0b668zf High Offset Size 5 2116-9445 - [id number] Implanted:Qty: 1 on 05/24/2024 at [facility] Right: Hip [facility] 03/30/2029 7000-660 5 / / [id number] [employer] V40 Hip -2.5mm Offset [place]comb Taper Sleeve Adapter Titanium 6519-T-025 - [id number] Implanted:Qty: 1 on 05/24/2024 at [facility] Right: Hip [employer] [facility] 04/11/2029 6519-T-0 25 / / [id number] [facility] 44mm Tapered Hip [place]comb Head Femoral Biolox Nonsterile 6519-1-044 - [id number] Implanted:Qty: 1 on 05/24/2024 at [facility] Right: Hip [facility] 03/10/2029 6519-1-0 44 / / [id number] [employer] Liner Acetabular Hip Trident X3 44mm Polyethylene 0 Degree Size F 723-00-44f - [id number] Implanted:Qty: 1 on 05/24/2024 at [facility] Right: Hip [facility] 03/24/2029 723-00-4 4F / / [id number] [facility] Shell Acetabular Trident Ii Tritanium F Od56mm Hip 5 Screw Hole Cluster Sterile 702-04-56f - [id number] Implanted:Qty: 1 on 05/24/2024 at [facility] Right: Hip [facility] 01/31/2029 702-04-5 6F / / [id number] A Explanted Type Area Hat Finisher Device Identifier Shelf Expiration Date Model / Serial / Lot [employer] Component Navigation Orthopedic Knee Instrument 132 Degree Jon [id number] - [id number] Explanted:Qty: 1 on 05/24/2024 at [facility] Right: Hip [facility] 10/22/2028 150997 / / [id number] Procedures Procedure Name Priority Date/Time Associated Diagnosis Comments XR HIP RIGHT W PELVIS 2 OR 3 VIEWS Schedule Routine, Read Routine (OP Routine) 09/16/2024 2:04 PM CDT Orthopedic aftercare from Last 3 [...] Final Result from Last 3 Months [place] [employer] [place] [employer] [place] [address] BLUE ACCESS CHOICE [place] Advance Directives For more information, please contact: [phone] * Full Code (Latest Code Status on File) Date Activated Date Inactivated Comments 08/01/2021 11:12 AM 08/02/2021 3:04 PM Care Teams Press Operator Meat Relationship Specialty Start Date End Date Jj Luu MD PCP - General Family Practice 07/24/21 Gerald Gomez MD [address] [facility] /[address] [place] [address] Consulting Physician Orthopedic Surgery 05/24/24
--- OUTSIDE RECORDS SUMMARY | 2024-09-27 02:09 | XMS_ITS | Clinical Summary ---
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
--- OUTSIDE RECORDS SUMMARY | 2024-09-27 02:09 | XMS_ITS | Clinical Summary ---
Author Organization [facility] Address [address] [place] [address] Care Team Providers Care Manufacturing Engineering Director Name Role Phone Jj Luu MD Primary [...] (07/10/2021): Added automatically from request for surgery [id number] Encounters Date Type Department Care Team Description 09/16/2024 2:45 PM CDT Office Visit [facility] Orthopaedic Surgery [address] [facility] Medical Office Building [address] [place] [address] Gerald Gomez MD Orthopedic aftercare (Primary Dx) 09/16/2024 1:52 PM CDT - 09/16/2024 11:59 PM CDT Hospital Encounter [facility] Radiology [facility] [address] [place] [address] Orthopedic aftercare Discharge Disposition: Discharge to home [...] on file 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 Tjrident X3 0 Degree Polyethyleve Inser Implanted:Qty: 1 on 08/01/2021 by Gerald Gomez MD at [facility] Other - see comments Left: Hip [facility] [id number] 12/11/2025 723-00-4 0F / NA / [id number] Description:Implant pause pe rformed prior to implant being opened to sterile field. [facility] V40 Lfit 40mm Primary Anatomic Hip +8mm Offset Taper Head Femoral 6260-9-340 - Sna - [id number] Implanted:Qty: 1 on 08/01/2021 by Gerald Gomez MD at [facility] Other - see comments Left: Hip [facility] [id number] 02/05/2025 6260-9-3 40 / NA / [id number] Description:Implant pause pe rformed prior to implant being opened to sterile field. [facility] 2331-9867 Stem Insignia Hip Size 4 High Offset - Sna - [id number] Implanted:Qty: 1 on 08/01/2021 by Gerald Gomez MD at [facility] Other - see comments Left: Hip [facility] [id number] 04/08/2026 7000-660 4 / NA / [id number] Description:Implant pause pe rformed prior to implant being opened to sterile field. [facility] [facility] 3862-5362 Screw Bone Trident Ii L30mm Od6.5mm Low Profile Hexagonal Sterile - Sna - [id number] Implanted:Qty: 1 on 08/01/2021 by Gerald Gomez MD at [facility] Screw Left: Hip [facility] [id number] 06/24/2026 7030-653 0 / NA / WSPD Description:Implant pause pe rformed prior to implant being opened to sterile field. [facility] 8648-5374 Screw Bone Trident Ii L25mm Od6.5mm Low Profile Hexagonal Sterile - Sna - [id number] Implanted:Qty: 1 on 08/01/2021 by Gerald Gomez MD at [facility] Screw Left: Hip [facility] [id number] 05/24/2026 7030-652 5 / NA / [id number] Description:Implant pause pe rformed prior to implant being opened to sterile field. [facility] Screw Bone Trident Ii L30mm Od6.5mm Low Profile Hexagonal Sterile 6005-4529 - [id number] Implanted:Qty: 1 on 05/24/2024 at [facility] Right: Hip [facility] 08/23/2028 7030-653 0 / / JHY [facility] Stem Femoral Hip Collared Insignia 38.1e013yc High Offset Size 5 9263-6645 - [id number] Implanted:Qty: 1 on 05/24/2024 at [facility] Right: Hip [facility] 03/30/2029 7000-660 5 / / [id number] [employer] V40 Hip -2.5mm Offset [place] Taper Sleeve Adapter Titanium 6519-T-025 - [id number] Implanted:Qty: 1 on 05/24/2024 at [facility] Right: Hip [facility] [facility] 04/11/2029 6519-T-0 25 / / [id number] [employer] 44mm Tapered Hip [place] Head Femoral Biolox Nonsterile 6519-1-044 - [id number] Implanted:Qty: 1 on 05/24/2024 at [facility] Right: Hip [facility] 03/10/2029 6519-1-0 44 / / [id number] [facility] Liner Acetabular Hip Trident X3 44mm Polyethylene 0 Degree Size F 723-00-44f - [id number] Implanted:Qty: 1 on 05/24/2024 at [facility] Right: Hip [facility] 03/24/2029 723-00-4 4F / / [id number] [facility] Shell Acetabular Trident Ii Tritanium F Od56mm Hip 5 Screw Hole Cluster Sterile 702-04-56f - [id number] Implanted:Qty: 1 on 05/24/2024 at [facility] Right: Hip [facility] 01/31/2029 702-04-5 6F / / [id number] Explanted Type Area Logistics Vice President Device Identifier Shelf Expiration Date Model / Serial / Lot [employer] Component Navigation Orthopedic Knee Instrument 132 Degree Jon [id number] - [id number] Explanted:Qty: 1 on 05/24/2024 at [facility] Right: Hip [facility] 10/22/2028 480950 / / [id number] Procedures Procedure Name Priority Date/Time Associated [...] Final Result from Last 3 Months Insurance [employer] [facility] [place] Advance Directives For more information, please contact: [phone] * Full Code (Latest Code Status on File) Date Activated Date Inactivated Comments 08/01/2021 11:12 AM 08/02/2021 3:04 PM Care Teams Manufacturing Engineering Director Relationship Specialty Start Date End Date Jj Luu MD PCP - General Family Practice 07/24/21 Gerald Gomez MD [address] [facility] /6[address] [place] [address] Consulting Physician Orthopedic Surgery 05/24/24
[2024-09-27] MEDS: ACETAMINOPHEN 500 MG TABLET 1000 MG PO (10:05)
[2024-09-27] MEDS: LACTATED RINGERS 1,000 ML 30 ML IV CONT ×2 (10:10→14:23)
[2024-09-27] MEDS: KETOROLAC 15 MG/ML VIAL (*BKC) IV PUSH (10:15)
--- NOTE | 2024-09-27 10:46 | WPDANESEPPF ---
Anes - Initial Pre Proc Eval Procedure: Operation Date: 09/27/24 11:30 Proposed Procedures p Laparoscopic Left Inguinal Hernia Repair with Mesh, DaVinci Assisted - Rick Aldrich DO s Open Umbilical Hernia Repair - Rick Aldrich DO Date/Time: 09/27/24 10:46 Surgeon: Rick Aldrich DO Pre Op Diagnosis: Lt Ing Hernia, Umb Hernia Patient Data Age: 54 Gender: M Height: 1.78 m Weight: 98.6 kg Last Vital Signs Temp 36.7 C 09/27/24 09:40 Pulse 69 09/27/24 09:40 Resp 18 09/27/24 09:40 BP 126/82 09/27/24 09:40 Pulse Ox 97 09/27/24 09:40 O2 Del Method Room Air 09/27/24 09:40 Allergies Allergy/AdvReac Type Severity Reaction Status Date / Time No Known Allergies Allergy Verified 09/21/24 14:54 Home Medications ?Medication ?Instructions ?Recorded ?Confirmed ?Type cholecalciferol (vitamin D3) 50 50 mcg PO DAILY 12/07/23 09/22/24 History mcg (2,000 unit) tablet atorvastatin 80 mg tablet (Lipitor) 80 mg PO QHS #90 tabs 09/08/24 09/22/24 Rx lisinopril 10 1 tablet PO DAILY 09/12/24 09/22/24 History mg-hydrochlorothiazide 12.5 mg tablet Patient hx anesthesia problems: none Family hx anesthesia problems: none Results Review: All pre-operative results and documents have been reviewed as part of the pre-operative evaluation. [facility] [place] Past Medical History Medical History Prediabetes Hypogonadism male Osteoarthritis of hips, bilateral BPH loc w/o ur obs/LUTS Vitamin D deficiency Male erectile dysfunction, unspecified Lumbar spondylosis Hx of renal calculi Closed left arm fracture Hyperlipidemia Hypertension Hx of adenomatous colonic polyps Surgical History Surgical History History of arthroplasty of right hip (~04/2024) History of total left hip arthroplasty (~07/2021) H/O tooth extraction 1986 H/O lithotripsy 1990s Family History Family History Father Family history of coronary artery disease Other Hypertension Social History Social History Smoking status: Never smoker Second hand tobacco smoke exposure: No Alcohol intake: current Drinks per week: 12 Substance use: never Substance use type: does not use Lack of Transportation: No Lack of Food: Never True Current Housing: I Have Housing Concerned About Future Housing: No Difficulty Paying Gas/Electric Bills: No Difficulty Paying for Meds: No Currently Unemployed: No Education: Master's Degree or Higher Difficulty w/ Childcare or Family Care: No Living arrangements: with family Occupation/Education: occupation Gender identity (if verbalized by the patient): Male Sexual Orientation (if Verbalized by the Patient): Straight or Heterosexual Spiritual care concerns: No Agree to blood products: Yes Anes - Eval Final PreProcedure Day of Procedure 09/27/24 10:46 Results Review: All pre-operative results and documents have been reviewed as part of the pre-operative evaluation. Informed Consent: The patient's anesthetic plan and its attendant risks and benefits were discussed with the patient/family/POA. Questions were solicited and answers provided to the satisfaction of the patient/family/POA.
--- NOTE | 2024-09-27 11:53 | WPDHPUPDATE1 ---
History and Physical Update Update Date/Time: 09/27/24 11:53 History and Physical has been reviewed, including an updated exam of the patient. There are NO changes in the patient's condition. Risks, benefits, and alternatives have been discussed and questions answered. Patient agrees to proceed with procedure.
[2024-09-27] MEDS: ceFAZolin 2 GM in SODIUM CHLORIDE 0.9% IV 50 ML 100 ML IVPB (12:26)
[2024-09-27] MEDS: BUPIVACAINE/EPINEPHRINE 0.5% 50 ML VIAL 30 ML INFILTRATE (13:02)
--- NOTE | 2024-09-27 14:16 | W.PM.PROC2 ---
Procedure Note - Detailed Date of Procedure 09/27/24 Pre-op Diagnosis Left inguinal hernia, umbilical hernia Post-op Diagnosis Same (Indirect left inguinal hernia, 2 cm umbilical hernia) Procedure Performed 1. Laparoscopic left inguinal hernia repair with mesh, da Shana assisted 2. Open 2 cm umbilical hernia repair with mesh Surgeon Rick Aldrich, DO Anesthesia General and Local (0.5% bupivacaine with epinephrine) Indications This is a 54-year-old man presented with left groin pain and a bulge that he 1st noticed about 6 months ago. His symptoms worsen with walking long distances or being on his feet for long periods of time. He denied any abdominal pain. On exam he was found to a reducible left inguinal hernia as well as a small umbilical hernia. Discussions were made with the patient about treatment options and decision was made to proceed with robotic assisted laparoscopic left inguinal hernia repair with mesh and open umbilical repair. Findings Robotic assisted laparoscopic inguinal hernia repair with mesh was performed. Patient was found to have an indirect left inguinal hernia containing a loop of sigmoid colon. The sigmoid colon was easily reducible due to some adhesions it tended to go right back up into the hernia defect. Few of these adhesions were taken down to allow the sigmoid colon to lie within the left lower quadrant naturally. He had a medium-sized indirect left inguinal hernia but no evidence of a right inguinal hernia. A robotic transabdominal preperitoneal approach was utilized for repair. Once a wide enough preperitoneal pocket was created and the hernia sac was reduced, I then placed a large left 3DMax mid mesh overlying the entire left myopectineal orifice. At the conclusion of the inguinal hernia repair I then removed the ports. The skin incision was extended at the supraumbilical region to about 4 cm wide. The umbilical hernia was then cleared circumferentially and the defect was measured. This was measuring about 2 cm. The decision was made to repair this with mesh as well. A 6.[address] hernia patch was placed and the fascia was closed over the mesh using 0 Ethibond [id number] sutures in a transverse fashion. No specimens were obtained for pathology. Description of Procedure Procedure as well as risks, benefits, and alternatives were discussed with the patient. Written consent was obtained and placed in chart prior to procedure. Patient was brought back to surgical suite. He was placed supine on operating table. Time-out was done to confirm patient and procedure. He was then intubated by Anesthesia Department. His abdomen was prepped and draped in sterile fashion using chlorhexidine prep. 0.5% bupivacaine with epinephrine was infiltrated at each location for incision. An 8 mm incision was made in the left lateral abdomen, and a 5 mm Optiview trocar was advanced through the abdominal layers under direct visualization. Once inside the abdominal cavity, carbon dioxide insufflation was used to create a pneumoperitoneum. A camera was inserted and the abdominal cavity was inspected. The patient was placed in slight Trendelenburg position. An 8 millimeter incision was made on the right lateral abdomen and an 8 millimeter trocar was inserted under direct visualization. Another 8 millimeter incision was made just superior to the umbilicus and an 8 millimeter trocar was inserted under direct visualization. The 5 mm port was then removed and this was replaced with another 8 mm robotic port. The robotic arms were brought up to the patient's bedside and secured to the ports. The camera and instruments were inserted. I then moved over to the robotic console and took control of the camera and instruments. After careful inspection of the abdominal cavity, I began scoring the peritoneum along the left lower quadrant using scissors with electrocautery. The preperitoneal plane was entered and this was carefully dissected caudally along the inferior epigastric vessels. Careful dissection with scissors with electrocautery and blunt dissection was used to continue this dissection. I dissected far enough laterally to allow for mesh placement, and also dissected medially to identify the pubic arch and David's ligament. The hernia sac was identified and carefully dissected posteriorly. The cord contents were also identified and the peritoneum was carefully dissected far enough posteriorly to allow for mesh placement. Once an adequate pocket was created, I then placed the mesh within the preperitoneal pocket and carefully unfolded it. The mesh was centered on the hernia defect with adequate overlap circumferentially. The inferior edge of the mesh was inspected to ensure that it was far enough away from the peritoneal edge. The mesh appeared in proper position overlying the entire myopectineal orifice. The mesh was secured using 3-0 Vicryl simple interrupted sutures in David's ligament, the superior medial edge, and superior lateral edge of the mesh. The peritoneum was then closed over the mesh using a 3-0 V-lock running absorbable suture. The robotic instruments were removed. The robotic arms were disengaged from the ports and moved away from the bedside. The patient was flattened out in bed, the ports were removed under direct visualization, and the pneumoperitoneum was released. The supraumbilical incision was extended to a 4 cm curvilinear incision was made just superior to the umbilicus using a 15 blade scalpel. Electrocautery was used for hemostasis and for dissection down through the subcutaneous fat. Hernia sac was encountered and this was carefully freed up from surrounding subcutaneous fat using electrocautery. The hernia sac was freed up all the way down to the level of the fascia. The hernia sac was excised and discarded. The umbilical stalk was then lifted off of the fascia with electrocautery. The hernia defect was then measured. This was measuring approximately 2 cm. The decision was made to use a 6.[address] hernia patch. The peritoneum was cleared under the fascia circumferentially around the hernia using blunt dissection and electrocautery. Once a wide enough pocket was created for the mesh, the mesh was then placed within this preperitoneal pocket and laid out flat centered on the hernia defect. The mesh appeared to be sitting in proper position. The mesh was then secured to the fascial edges well closing the hernia defect over the mesh using 0 Ethibond [id number] sutures. A total of 3 sutures were placed in a transverse fashion. The repair was inspected and appeared secure. 0.5% bupivacaine with epinephrine was infiltrated around the fascia and subcutaneous space. The umbilical stalk was then reapproximated to the fascia using a 3 0 Vicryl simple interrupted suture. The deep dermis was reapproximated using 3 0 Vicryl simple interrupted sutures. The skin of the incisions was approximated using 4-0 Monocryl subcuticular suture, and Exofin glue was applied on top. The patient was awakened from anesthesia, extubated, and transferred to recovery. Implants Large left 3DMax mid mesh 6.[address] hernia patch Estimated Blood Loss 5 Complications No immediate complications Condition Stable Disposition Same day [facility] Billing Surgery - Charge Forward: Surgery Billing
[2024-09-27] MEDS: oxyCODONE HCL (*CRX) 5 MG TAB IR PO (16:00)
== END 2024-09-27 17:11 | disposition home or self-care (01) ==
PROVIDERS: PCP Family Medicine; Visit Provider Surgery
PROC: 8E0Y4CZ Robotic Assisted Procedure of Lower Extremity, Percutaneous Endoscopic Approach (ICD-10-PCS; CPT 49650; principal; 2024-09-27 11:30)
PROC: (CPT 49650; 2024-09-27 11:30)
DX: K40.90 Unilateral inguinal hernia, without obstruction or gangrene, not specified as recurrent (principal); K42.9 Umbilical hernia without obstruction or gangrene; I10 Essential (primary) hypertension; N40.0 Benign prostatic hyperplasia without lower urinary tract symptoms; E55.9 Vitamin D deficiency, unspecified; N52.9 Male erectile dysfunction, unspecified; R73.03 Prediabetes; E29.1 Testicular hypofunction; M16.0 Bilateral primary osteoarthritis of hip; M43.06 Spondylolysis, lumbar region; Z98.890 Other specified postprocedural states; Z87.442 Personal history of urinary calculi; Z86.0100 Personal history of colon polyps, unspecified; Z82.49 Family history of ischemic heart disease and other diseases of the circulatory system
CPT/HCPCS: 49650; 49591; S2900; J0690; A9270; C1781; J1100; J1171; J1885; J2003; J2250; J2405; J2704; J3010; J7030; J7120